=== PATIENT | female | born 1960 | race Caucasian/White ===

== ENCOUNTER 2017-05-17 09:54 | Outpatient (CLI) | payer OTHER ==
[~2017-05-17 09:54] MED LIST: HYZAAR 50-12.1 UDTAB PO; SINGULAIR10 MG PO; SYNTHROID175 MCG
== END 2017-05-17 10:02 | disposition home or self-care (01) ==
LOC: LAB 09:54
DX: D64.89 Other specified anemias (principal); R10.9 Unspecified abdominal pain; E78.4 Other hyperlipidemia; R80.9 Proteinuria, unspecified; E11.9 Type 2 diabetes mellitus without complications; R73.09 Other abnormal glucose

== ENCOUNTER 2017-08-25 07:13 | Outpatient (CLI) | payer OTHER | END 2017-08-25 07:33 | disposition home or self-care (01) | LOC: LAB 07:13 | DX: I10 Essential (primary) hypertension (principal); E11.9 Type 2 diabetes mellitus without complications; E03.9 Hypothyroidism, unspecified; E78.2 Mixed hyperlipidemia ==

== ENCOUNTER 2017-09-08 08:02 | Outpatient (CLI) | payer OTHER ==
[~2017-09-08] VITALS: Ht 175.3 cm; Wt 113.4 kg
== END 2017-09-08 08:20 | disposition home or self-care (01) ==
LOC: OFIC 805 08:02
DX: J31.0 Chronic rhinitis (principal); H90.3 Sensorineural hearing loss, bilateral; H70.13 Chronic mastoiditis, bilateral

== ENCOUNTER 2017-09-29 09:55 | Outpatient (CLI) | payer OTHER | END 2017-09-29 16:00 | disposition home or self-care (01) | LOC: TOM 09:55 | DX: H70.892 Other mastoiditis and related conditions, left ear (principal) ==

== ENCOUNTER 2017-10-27 09:34 | Outpatient (CLI) | payer OTHER ==
[~2017-10-27] VITALS: Ht 152.4 cm; Wt 113.4 kg
[2017-10-27] MEDS ORDERED: ACETIC ACID15 ML OTIC (12:51)
== END 2017-10-27 09:50 | disposition home or self-care (01) ==
LOC: OFIC 805 09:34
DX: H70.12 Chronic mastoiditis, left ear (principal); J31.0 Chronic rhinitis; H91.8X3 Other specified hearing loss, bilateral

== ENCOUNTER 2017-10-27 10:03 | Outpatient (CLI) | payer OTHER ==
[2017-10-27] MEDS ORDERED: ACETIC ACID15 ML OTIC (12:51)
== END 2017-10-27 10:09 | disposition home or self-care (01) ==
LOC: LAB 10:03
DX: G31.84 Mild cognitive impairment of uncertain or unknown etiology (principal); E55.9 Vitamin D deficiency, unspecified; E51.8 Other manifestations of thiamine deficiency

== ENCOUNTER 2017-12-10 09:28 | Outpatient (CLI) | payer OTHER ==
[~2017-12-10] VITALS: Ht 152.4 cm; Wt 104.3 kg
[~2017-12-10 09:28] MED LIST changes: +ACETIC ACID15 ML OTIC
== END 2017-12-10 09:45 | disposition home or self-care (01) ==
LOC: OFIC 805 09:28
DX: H70.13 Chronic mastoiditis, bilateral (principal); H90.3 Sensorineural hearing loss, bilateral; J31.0 Chronic rhinitis

== ENCOUNTER 2017-12-17 12:15 | Outpatient (CLI) | payer OTHER | END 2017-12-17 12:16 | disposition home or self-care (01) | LOC: LAB 12:15 | DX: I65.23 Occlusion and stenosis of bilateral carotid arteries (principal) ==

== ENCOUNTER 2017-12-24 10:28 | Outpatient (CLI) | payer OTHER ==
[~2017-12-24] VITALS: Ht 152.4 cm; Wt 104.3 kg
== END 2017-12-24 10:45 | disposition home or self-care (01) ==
LOC: OFIC 805 10:28
DX: H70.13 Chronic mastoiditis, bilateral (principal); L85.3 Xerosis cutis; H90.3 Sensorineural hearing loss, bilateral; J31.0 Chronic rhinitis; R06.02 Shortness of breath

== ENCOUNTER 2017-12-24 13:25 | Outpatient (CLI) | payer OTHER | END 2017-12-24 14:40 | disposition home or self-care (01) | LOC: MRI 13:25 | DX: I63.8 Other cerebral infarction (principal); I65.8 Occlusion and stenosis of other precerebral arteries | CPT/HCPCS: 70498; 70551 ==

== ENCOUNTER 2018-04-18 14:44 | Outpatient (CLI) | payer OTHER | END 2018-04-18 14:49 | disposition home or self-care (01) | LOC: RAD 14:44 | DX: M19.012 Primary osteoarthritis, left shoulder (principal); M19.011 Primary osteoarthritis, right shoulder; M12.88 Other specific arthropathies, not elsewhere classified, other specified site ==

== ENCOUNTER 2018-04-22 14:24 | Outpatient (CLI) | payer OTHER | END 2018-04-22 14:26 | disposition home or self-care (01) | LOC: SONOGRAMA 14:24 | DX: M12.9 Arthropathy, unspecified (principal); M12.88 Other specific arthropathies, not elsewhere classified, other specified site ==

== ENCOUNTER 2018-05-13 09:17 | Outpatient (CLI) | payer OTHER ==
[~2018-05-13] VITALS: Ht 152.4 cm; Wt 104.3 kg
== END 2018-05-13 09:35 | disposition home or self-care (01) ==
LOC: OFIC 805 09:17
DX: H70.12 Chronic mastoiditis, left ear (principal); H90.6 Mixed conductive and sensorineural hearing loss, bilateral; H61.23 Impacted cerumen, bilateral; H93.13 Tinnitus, bilateral

== ENCOUNTER 2018-07-31 14:04 | Emergency (ER) | payer OTHER ==
[~2018-07-31] VITALS: Ht 172.7 cm; Wt 113.4 kg
[2018-07-31] MEDS ORDERED: ASA81 MG (14:56)
[2018-07-31] MEDS ORDERED: TOPROL XL50 M1 (14:57)
[2018-07-31] MEDS ORDERED: ZOCOR80 MG (14:57)
[2018-07-31] MEDS ORDERED: LASIX20 MG (14:57)
[2018-07-31] MEDS ORDERED: TOBRADEX EYE DR10 ML OP (15:22)
== END 2018-07-31 15:25 | disposition home or self-care (01) ==
LOC: ER 14:04
DX: H10.89 Other conjunctivitis (principal); H01.002 Unspecified blepharitis right lower eyelid

== ENCOUNTER 2020-08-02 13:12 | Outpatient (CLI) | payer OTHER ==
[~2020-08-02 13:12] MED LIST changes: +ASA81 MG; +LASIX20 MG; +TOBRADEX EYE DR10 ML OP; +TOPROL XL50 M1; +ZOCOR80 MG
== END 2020-08-02 15:02 | disposition home or self-care (01) ==
LOC: OFIC 805 13:12
PROVIDERS: ATTEND Otolaryngology Otology & Neurotology
DX: H70.12 Chronic mastoiditis, left ear (principal); H60.8X2 Other otitis externa, left ear

== ENCOUNTER 2020-09-23 14:39 | Outpatient (CLI) | payer OTHER | END 2020-09-23 15:37 | disposition home or self-care (01) | LOC: OFIC 805 14:39 | PROVIDERS: ATTEND Otolaryngology Otology & Neurotology | DX: H90.A11 Conductive hearing loss, unilateral, right ear with restricted hearing on the contralateral side (principal); H70.12 Chronic mastoiditis, left ear; H60.8X2 Other otitis externa, left ear ==

== ENCOUNTER 2020-12-13 05:25 | Day surgery (SDC) | payer OTHER ==
[~2020-12-13 05:25] MED LIST changes: +CARVEDILOL3.125 MG; +COZAAR100 MG PO; +NORVASC2.5 M1 PO; +PRAVASTATIN SOD80 MG PO; +WELLBUTRIN XL150 M1 PO; +ZOLOFT50 MG PO
[2020-12-13] MEDS ORDERED: ZOFRAN8 MG PO (10:49)
[2020-12-13] MEDS ORDERED: AMOXICILLIN500 M1 PO (10:49)
== END 2020-12-13 14:00 | disposition home or self-care (01) ==
LOC: CIR.AMB 05:25
PROVIDERS: ATTEND Otolaryngology Otology & Neurotology
DX: H70.12 Chronic mastoiditis, left ear (principal); H72.02 Central perforation of tympanic membrane, left ear; H74.22 Discontinuity and dislocation of left ear ossicles; H90.A12 Conductive hearing loss, unilateral, left ear with restricted hearing on the contralateral side; Z20.822 Contact with and (suspected) exposure to COVID-19

== ENCOUNTER 2021-05-13 13:30 | Outpatient (CLI) | payer OTHER ==
[~2021-05-13 13:30] MED LIST changes: +AMOXICILLIN500 M1 PO; +ZOFRAN8 MG PO
== END 2021-05-13 13:40 | disposition home or self-care (01) ==
LOC: LAB 13:30
PROVIDERS: ATTEND Radiology Diagnostic Radiology
DX: J44.9 Chronic obstructive pulmonary disease, unspecified (principal)

== ENCOUNTER 2021-08-20 06:00 | Day surgery (SDC) | payer OTHER ==
[~2021-08-20 06:00] MED LIST changes: +ZOLOFT100 MG PO
[2021-08-20] MEDS ORDERED: LEVOFLOXACIN500 MG PO (08:10)
== END 2021-08-20 11:45 | disposition home or self-care (01) ==
LOC: CIR.AMB 06:00
PROVIDERS: ATTEND Otolaryngology Otology & Neurotology
DX: H70.812 Postauricular fistula, left ear (principal); H70.002 Acute mastoiditis without complications, left ear; I11.9 Hypertensive heart disease without heart failure; J44.9 Chronic obstructive pulmonary disease, unspecified; E03.9 Hypothyroidism, unspecified; E66.9 Obesity, unspecified; I25.10 Atherosclerotic heart disease of native coronary artery without angina pectoris; Z95.5 Presence of coronary angioplasty implant and graft

== ENCOUNTER 2023-11-30 11:01 | Outpatient (CLI) | payer OTHER ==
[~2023-11-30 11:01] MED LIST changes: +LEVOFLOXACIN500 MG PO
== END 2023-11-30 11:05 | disposition home or self-care (01) ==
LOC: TOM 11:01
PROVIDERS: ATTEND Internal Medicine Critical Care Medicine
DX: J44.9 Chronic obstructive pulmonary disease, unspecified (principal); J43.2 Centrilobular emphysema; R09.02 Hypoxemia; G47.33 Obstructive sleep apnea (adult) (pediatric); Z20.822 Contact with and (suspected) exposure to COVID-19

== ENCOUNTER 2023-12-24 08:00 | Outpatient (CLI) | payer OTHER | END 2023-12-24 08:07 | disposition home or self-care (01) | LOC: TOM 08:00 | PROVIDERS: ATTEND Internal Medicine Cardiovascular Disease | DX: R10.9 Unspecified abdominal pain (principal); N89.8 Other specified noninflammatory disorders of vagina; C55 Malignant neoplasm of uterus, part unspecified ==

== ENCOUNTER 2024-04-26 07:36 | Outpatient (CLI) | payer OTHER | END 2024-04-26 07:42 | disposition home or self-care (01) | LOC: SONOGRAMA 07:36 | DX: E21.0 Primary hyperparathyroidism (principal); E04.2 Nontoxic multinodular goiter ==

== ENCOUNTER → 2024-05-17 | Outpatient (CLI) | payer OTHER | END | disposition home or self-care (01) | LOC: SONOGRAMA 13:58 | DX: N28.1 Cyst of kidney, acquired (principal); N20.0 Calculus of kidney ==

== ENCOUNTER 2024-06-13 05:34 | Day surgery (SDC) | payer OTHER ==
[2024-06-09 10:55] VITALS: BP 141/79
[2024-06-09 10:55] LABS: HEMATOCRIT 32.3 % (36.0-45.00); HEMOGLOBIN 10.7 g/dL (12.0-15.00); MEAN CELL VOLUME 88.1 fL (80.00-100.00); MEAN CORPUSCULAR HEMOGLOBIN 29.2 pg (27.00-32.0); MEAN CORPUSCULAR HGB CONC 33.2 g/dl (32.0-36.0); PLATELET COUNT 391 K/uL (150-450); RED BLOOD COUNT 3.66 M/uL (4.00-6.00); RED CELL DISTRIBUTION WIDTH 15.1 % (11.5-14.5)
[2024-06-09 11:05] LABS: PH,URINE 5.5 (5.0-8.0); URINE APPEARANCE Clear; URINE BILIRRUBIN Negative (NEGATIVE); URINE COLOR Yellow; URINE KETONE Negative (NEGATIVE); URINE LEUKOCYTE Trace; URINE NITRATE Negative; URINE PROTEIN 30 (NEGATIVE); URINE UROBILINOGEN 0.2 E.U./dl
[2024-06-09 11:06] LABS: URINE BACTERIA 778.3 uL (0.0-1933); URINE EPITHELIAL CELLS 35.7 uL (0.0-38.8); URINE RBC 66.5 uL (0.0-20.8); URINE WBC 30.5 uL (0.0-23.2)
[2024-06-09 11:29] LABS: PARTIAL THROMBOPLASTIN TIME 23.2 SECONDS (22.0-34.0); PROTHROMBIN TIME 10.9 SECONDS (9.0-11.5)
[2024-06-09 11:32] LABS: URINE BLOOD Trace; URINE GLUCOSE >=1000 MG/DL (NEGATIVE)
[2024-06-09 11:36] LABS: URINE YEAST MODERATE /hpf
[~2024-06-13] VITALS: Ht 172.7 cm; Wt 106.6 kg
[~2024-06-13 05:34] MED LIST changes: +DALIRESP500 MCG PO; +FARXIGA10 MG PO; +LOSARTAN POTAS100 MG PO; +ROSUVASTATIN CA10 MG PO; +SENSIPAR30 MG PO; -SYNTHROID175 MCG; +SYNTHROID175 MCG PO
[2024-06-13] MEDS ORDERED: POVIDONE-IODINE 118 ML BOTT TOP ONE (07:10)
[2024-06-13] MEDS ORDERED: ACETAMINOPHEN 325 MG TABLET PO ONE (08:45)
[2024-06-13] MEDS ORDERED: KETOROLAC TROMETHAMINE 30 MG VIAL IV ONE (08:45)
[2024-06-13] MEDS ORDERED: ONDANSETRON HCL 2 MG/ML VIAL IV ONE (08:45)
== END 2024-06-13 13:30 | disposition home or self-care (01) ==
LOC: CIR.AMB 05:34
PROVIDERS: ATTEND Obstetrics & Gynecology
DX: N95.0 Postmenopausal bleeding (principal)

== ENCOUNTER 2024-08-31 15:12 | Emergency (ER) | payer OTHER ==
[~2024-08-31] VITALS: Ht 172.7 cm; Wt 105.7 kg
[2024-08-31 18:47] LABS: HEMATOCRIT 28.3 % (36.0-45.00); HEMOGLOBIN 9.2 g/dL (12.0-15.00); MEAN CELL VOLUME 84.8 fL (80.00-100.00); MEAN CORPUSCULAR HEMOGLOBIN 27.5 pg (27.00-32.0); MEAN CORPUSCULAR HGB CONC 32.4 g/dl (32.0-36.0); PLATELET COUNT 395 K/uL (150-450); RED BLOOD COUNT 3.34 M/uL (4.00-6.00); RED CELL DISTRIBUTION WIDTH 14.3 % (11.5-14.5)
[2024-08-31 19:08] LABS: INR 1.04; PARTIAL THROMBOPLASTIN TIME 25.2 SECONDS (22.0-34.0); PROTHROMBIN TIME 11.3 SECONDS (9.0-11.5)
[2024-08-31 19:14] LABS: ALBUMIN 3.9 gm/dL (3.4-5.0); BILIRUBIN TOTAL 0.36 mg/dL (0.3-1.2); CALCIUM 9.8 mg/dL (8.5-10.1); CREATININE SERUM 1.32 mg/dL (0.55-1.02); GFR 40.26; GLOBULINA 3.3 G/DL (2.4-3.5); POTASSIUM 4.16 mEq/L (3.5-5.1); TOTAL PROTEIN 7.2 gm/dL (6.4-8.2)
== END 2024-08-31 22:21 | disposition home or self-care (01) ==
LOC: ER 15:12
PROVIDERS: General Practice
DX: D64.89 Other specified anemias (principal); I25.10 Atherosclerotic heart disease of native coronary artery without angina pectoris; I10 Essential (primary) hypertension; E21.2 Other hyperparathyroidism; E03.8 Other specified hypothyroidism; J44.9 Chronic obstructive pulmonary disease, unspecified